=== PATIENT | female | born 1975 | race Caucasian/White ===

== ENCOUNTER 2017-01-11 14:00 | Emergency (ER) | payer SELFPAY ==
[2017-01-11] MEDS ORDERED: OXYCODONE/APAP 5/325 TAB PO ONE (15:00)
[2017-01-11] MEDS ORDERED: OXYCODONE/APAP 5/325 TAB ONE (15:05)
[2017-01-11 15:25] VITALS: BP 132/71; PULSE 86; RESP 14; TEMP 98.2; O2SAT 98
--- NOTE | 2017-01-11 15:25 | UCPHY ---
H & P Time Seen by Provider: 01/11/17 15:11 Patient Type: New HPI/ROS: HPI Right wrist injury. 41-year-old female by private vehicle with her . Last night she reports that she slipped and fell on an outstretched right hand. She reports an injury and isolated pain to her right wrist. She denies any hand pain or elbow pain. No other injury or complaint. She is right-hand dominant. ROS: Constitutional: No fever, no chills. No weakness. Respiratory: No cough. No shortness of breath. Cardiac: No chest pain, no palpitations. Gastrointestinal: No abdominal pain, no vomiting, no diarrhea. Genitourinary: No hematuria. Musculoskeletal: No back pain. No neck pain. As above. No other extremity pain. Skin: No rashes. Neurological: No headache. No focal weakness or altered sensation. Past medical history: She denies any significant past medical history. Primary care physician is Dr. Groves. Social history: Nonsmoker. Here with her . Physical Exam: General Appearance: Alert, no distress. This patient is responding to questions appropriately and in full sentences. This patient appears well- hydrated and well-nourished. Eyes: Pupils equal and round no pallor or injection. No lid edema, erythema or injection. Right upper extremity exam: Significant for a tender swelling over the radial dorsal aspect of the right wrist. No ecchymosis. The skin is intact. Bony aspects of the hand are otherwise nontender and there is no pain elicited by axial compression of all digits. No snuffbox tenderness. The elbow ranges without any pain or impingement as does the shoulder. The right hand is neurovascularly intact. Neurological: Motor sensory function is grossly intact. Cranial nerves are normal. Gait is normal. Skin: Warm and dry, no rashes. No lacerations or abrasions. Musculoskeletal: Neck is supple and nontender. Extremities are symmetrical except noted. All joints range without pain or impingement except noted. Psychiatric: No agitation. No depression. Database: EKG: Imaging: Right wrist x-ray series: Comminuted distal right radius fracture with dorsal angulation. Possible intra-articular involvement. Interpreted by me. Procedures: Procedure: Splint placement. A ortho glass sugar-tong splint was applied right wrist. After application of the splint I returned and re-examined the patient. The splint was adequately immobilizing the joint and distal to the splint the patient's circulation and sensation was intact. Emergency department course: The patient has been taking ibuprofen today. Her vital signs reviewed. From triage she was given 1 Percocet. On my evaluation with the wrist stationary her pain is well controlled. She was sent for a right wrist x-ray series. 3:45 p.m., patient splinted as above. Pain is well controlled. Plan for orthopedic follow-up discussed with her and her . Return to emergency department precautions reviewed. She feels comfortable going home. All of her questions were answered. Repeat examination of her right hand, she is neurovascularly intact.She was discharged in good condition. She will be prescribed ibuprofen as well as Percocet for pain control. Differential Diagnosis: The differential diagnosis on this patient includes but is not limited to distal radial fracture. Carpal, metacarpal fracture, head injury unlikely. This represents a partial list of diagnoses considered. These considerations are based on history, physical exam, past history, reassessment and diagnostic testing. Constitutional: Initial Vital Signs Temperature (C) 36.8 C 01/11/17 15:21 Heart Rate 86 01/11/17 15:21 Respiratory Rate 14 01/11/17 15:21 Blood Pressure 132/71 H 01/11/17 15:21 O2 Sat (%) 98 01/11/17 15:21 O2 Delivery Mode Room Air Allergies/Adverse Reactions: No Known Allergies Allergy (Unverified 01/11/17 15:21) Home Medications: Medication Instructions Recorded Eads Thyroid 01/11/17 Hydrocodone/APAP 5/325 [Evans 1 - 2 tab PO Q4-6PRN PRN #14 tab 01/11/17 5/325 (*)] oxyCODONE/APAP 5/325 [Percocet 1 - 2 tab PO Q4-6PRN PRN #14 tab 01/11/17 5/325 (*)] Medical Decision Making - Data Points Medications Given: Discontinued Medications Oxycodone/Acetaminophen (Percocet 5/325mg Prepack#4) 1 btl TAKEHOME EDNOW ONE Stop: 01/11/17 15:40 Last Admin: 01/11/17 16:33 Dose: 1 btl Oxycodone/Acetaminophen (Percocet 5/325) 1 tab PO EDNOW ONE Stop: 01/11/17 15:01 Last Admin: 01/11/17 15:00 Dose: 1 tab Departure - Departure Disposition: Home, Routine, Self-Care Clinical Impression: Fracture of right distal radius Condition: Good Instructions: Wrist Fracture in Adults (ED) Additional Instructions: Read and follow provided instructions. Follow-up with Orthopedics, Dr. Desouza or 1 of his partners early this week for re-evaluation and further management. Call their office on Thursday for appointment time. Explain this is for a fractured wrist and an emergency department follow-up. Keep splint in place until you are seen by Orthopedics. Ibuprofen dosin mg every 6 hours with meals for the next 3 days only. Evans/Percocet dosin-2 every 4-6 hours for [address] Do not drive on this medication. Return to the emergency department for worsening pain, discoloration, numbness or loss of sensation, swelling or other serious concerns. Referrals: Mohinder Desouza MD [Medical Doctor] - As per Instructions Prescriptions: Hydrocodone/APAP 5/325 [Evans 5/325 (*)] 1 - 2 tab PO Q4-6PRN PRN #14 tab PRN Reason: Pain, Moderate oxyCODONE/APAP 5/325 [Percocet 5/325 (*)] 1 - 2 tab PO Q4-6PRN PRN #14 tab PRN Reason: For Moderate To Severe Pain - PQRS PQRS Measurement: Not applicable.
[2017-01-11] MEDS ORDERED: OXYCODONE/APAP 5/325MG PREPACK#4 BTL TAKEHOME ONE (15:39)
== END 2017-01-11 16:29 | disposition home or self-care (01) ==
LOC: CED 14:00
PROC: 2W3CX1Z Immobilization of Right Lower Arm using Splint (ICD-10-PCS; principal; 2017-01-11)
DX: S52.591A Other fractures of lower end of right radius, initial encounter for closed fracture (principal); W01.0XXA Fall on same level from slipping, tripping and stumbling without subsequent striking against object, initial encounter
CPT/HCPCS: 73110-PO; G0463-PO